=== PATIENT | female | born 1985 | race Asian ===

== ENCOUNTER 2020-10-04 02:52 | Emergency (ER) | payer OTHER ==
[~2020-10-04] VITALS: Ht 149.9 cm; Wt 53.6 kg
[2020-10-04] MEDS ORDERED: AMOX TR/POT CLAV 875 MG/125 MG TABLET PO ONE (03:30)
[2020-10-04] MEDS ORDERED: ACETAMINOPHEN 500 MG TABLET PO ONE (03:30)
[2020-10-04] MEDS ORDERED: KETOROLAC TROMETHAMINE 30 MG/ML VIAL IM ONE (03:30)
[2020-10-04 03:48] VITALS: BP 115/68
== END 2020-10-04 03:52 | disposition home or self-care (01) ==
LOC: EMS 02:59
DX: K04.7 Periapical abscess without sinus (principal)
CPT/HCPCS: 96372; 99283; J1885

== ENCOUNTER 2021-08-15 07:32 | Emergency (ER) | payer OTHER ==
[~2021-08-15] VITALS: Ht 149.9 cm; Wt 50.0 kg
[2021-08-15] MEDS ORDERED: IBUP-2070 PO (08:43)
[2021-08-15] MEDS ORDERED: CYCL10TA17 PO (08:44)
[2021-08-15 09:15] VITALS: BP 121/77
== END 2021-08-15 10:23 | disposition home or self-care (01) ==
LOC: EMS 07:32
DX: S39.012A Strain of muscle, fascia and tendon of lower back, initial encounter (principal); M53.3 Sacrococcygeal disorders, not elsewhere classified; X50.0XXA Overexertion from strenuous movement or load, initial encounter; Y93.89 Activity, other specified; Y92.89 Other specified places as the place of occurrence of the external cause; Y99.8 Other external cause status
CPT/HCPCS: 84703; 99283

== ENCOUNTER 2023-03-01 02:10 | Emergency (ER) | payer OTHER ==
[~2023-03-01] VITALS: Ht 149.9 cm; Wt 50.0 kg
[~2023-03-01 02:10] MED LIST: CYCL-448 PO; IBUP-1492 PO
[2023-03-01 02:23] VITALS: TEMP 98.4
[2023-03-01] MEDS ORDERED: KETOROLAC TROMETHAMINE 30 MG/ML VIAL IVP ONE (02:45)
[2023-03-01] MEDS ORDERED: ONDANSETRON HCL 4 MG/2 ML VIAL IVP ONE (02:45)
[2023-03-01 03:16] LABS: BASOPHILS % (AUTO) 0.2 % (0.0-2.0); EOSINOPHILS % (AUTO) 1.1 % (1.0-6.0); HEMATOCRIT 36.7 % (36-46); HEMOGLOBIN 11.9 g/dL (12.0-16.0); LYMPHOCYTES # (AUTO) 2.5 K/uL (1.0-4.8); LYMPHOCYTES % (AUTO) 18.4 % (22.0-44.0); MEAN CORPUSCULAR HEMOGLOBIN 28.8 pg (26.0-34.0); MEAN CORPUSCULAR HGB CONC 32.3 G/dL (31.0-37.0); MEAN CORPUSCULAR VOLUME 89 fL (80-100); MONOCYTES # (AUTO) 0.7 K/uL (0.1-1.0); MONOCYTES % (AUTO) 4.9 % (2.0-9.0); NEUTROPHILS # (AUTO) 10.2 K/uL (1.8-7.7); NEUTROPHILS % (AUTO) 75.4 % (40.0-70.0); PLATELET COUNT (AUTO) 299 K/uL (150-450); RED BLOOD CELL COUNT(AUTO) 4.12 MIL/uL (4.00-5.20); RED CELL DISTRIBUTION WIDTH 12.6 % (11.5-14.5); WHITE BLOOD COUNT (AUTO) 13.5 K/uL (4.5-11.0)
[2023-03-01 03:27] LABS: ANION GAP 11 mmol/L (8-16); CARBON DIOXIDE 22 mmol/L (22-29); CHLORIDE 101 mmol/L (98-107); CREATININE 0.69 mg/dL (0.60-1.30); GLOMERULAR FILTR. RATE CALC > 60 mL/min (>60); GLUCOSE,RANDOM 160 mg/dL (70-110); POTASSIUM 3.4 mmol/L (3.5-5.1); SODIUM SERUM 134 mmol/L (136-145); UREA NITROGEN, BLOOD 14 mg/dL (7-18)
[2023-03-01 03:34] LABS: ALANINE AMINOTRANSFERASE 17 U/L (12-78); ALBUMIN 3.3 g/dL (3.4-5.0); ALKALINE PHOSPHATASE 47 U/L (46-116); ASPARTATE AMINOTRANSFERASE 17 U/L (15-37); BILIRUBIN,TOTAL 0.4 mg/dL (0.1-1.0); LIPASE 41 U/L (16-77); TOTAL PROTEIN, SERUM 7.4 g/dL (6.4-8.2)
[2023-03-01 04:15] LABS: APPEARANCE,URINE HAZY (CLEAR); COLOR,URINE DARK BROWN (YELLOW); GLUCOSE, URINE (UA) NEGATIVE (NEGATIVE); KETONES,URINE NEGATIVE (NEGATIVE); LEUKOCYTE ESTERASE ,URINE NEGATIVE (NEGATIVE); NITRATE,URINE POSITIVE (NEGATIVE); OCCULT BLOOD,URINE LARGE (NEGATIVE); PH,URINE 5.5 (5.0-8.0); PROTEIN,URINE 30-70 mg/dL (NEGATIVE); SPECIFIC GRAVITIY, URINE 1.032 (1.003-1.030)
[2023-03-01 04:26] LABS: BILIRUBIN,URINE SMALL (NEGATIVE)
[2023-03-01 04:40] LABS: WBC,URINE 0-2 /HPF (0-5)
[2023-03-01 04:41] LABS: BACTERIA,URINE Few /HPF (None Seen); CALCIUM OXALATE CRYSTALS,UR Few /LPF (None Seen); SQUAMOUS EPITHELIAL CELL,UR Few /LPF (None Seen)
[2023-03-01] MEDS ORDERED: FentaNYL CITRATE PF 100 MCG/2 ML VIAL IVP ONE (05:15)
[2023-03-01] MEDS ORDERED: ACETAMINOPHEN 325 MG TABLET PO ONE (05:45)
[2023-03-01 06:12] VITALS: BP 113/71; PULSE 75; RESP 16
[2023-03-01] MEDS ORDERED: TAMS0.4C34 PO (06:29)
[2023-03-01] MEDS ORDERED: IBUP-1492 PO (06:29)
== END 2023-03-01 06:36 | disposition home or self-care (01) ==
LOC: EMS 02:11
DX: N23 Unspecified renal colic (principal); R31.9 Hematuria, unspecified
CPT/HCPCS: 99285; 74176; 96374; 71045; 96375; 80053; 81001; 83690; 84703; 85025; 36415; 93005; J1885; J2405

== ENCOUNTER 2025-02-05 18:41 | Emergency (ER) | payer OTHER ==
[~2025-02-05] VITALS: Ht 149.9 cm; Wt 52.3 kg
[~2025-02-05 18:41] MED LIST changes: +TAMS0.4C94 PO
[2025-02-05 19:42] LABS: PLATELET COUNT (AUTO) 275 K/uL (150-450); RED BLOOD CELL COUNT(AUTO) 3.82 MIL/uL (4.00-5.20); RED CELL DISTRIBUTION WIDTH 13.0 % (11.5-14.5); WHITE BLOOD COUNT (AUTO) 21.6 K/uL (4.5-11.0)
[2025-02-05 19:50] LABS: CALCIUM, TOTAL 8.5 mg/dL (8.8-10.5); CREATININE 0.69 mg/dL (0.60-1.30); GLOMERULAR FILTR. RATE CALC > 60 mL/min (>60); GLUCOSE,RANDOM 203 mg/dL (70-110); SODIUM SERUM 131 mmol/L (136-145); UREA NITROGEN, BLOOD 10 mg/dL (7-18)
[2025-02-05 19:57] LABS: ASPARTATE AMINOTRANSFERASE 18 U/L (15-37); TOTAL PROTEIN, SERUM 6.6 g/dL (6.4-8.2)
[2025-02-05] MEDS: SODIUM CHLORIDE 0.9% 1,000 ML IV ONE (20:02)
[2025-02-05] MEDS: MORPHINE SULFATE 2 MG/ML SYRINGE IVP ONE (20:02)
[2025-02-05] MEDS: ONDANSETRON HCL 4 MG/2 ML VIAL IVP ONE (20:02)
[2025-02-05 20:14] LABS: LACTIC ACID 5.4 mmol/L (0.4-2.0)
[2025-02-05] MEDS: SODIUM CHLORIDE 0.9% 600 ML IV ONE (20:28)
[2025-02-05] MEDS: CefTRIAXone 1 GM/DEXTROSE 50 ML IV ONE (22:13)
[2025-02-05] MEDS ORDERED: SODIUM CHLORIDE 0.9% 250 ML IV ONE (22:57)
[2025-02-05] MEDS ORDERED: FentaNYL CITRATE PF 100 MCG/2 ML VIAL ONE (23:00)
[2025-02-05 23:21] VITALS: BP 90/46; PULSE 65; RESP 16; TEMP 97.9
[2025-02-05 23:46] VITALS: BP 88/57; PULSE 72; RESP 15; TEMP 98.2
[2025-02-06 00:16] VITALS: BP 95/32; PULSE 80; RESP 17; TEMP 98
[2025-02-06] MEDS: FentaNYL CITRATE PF 100 MCG/2 ML VIAL IVP ONE (00:24)
[2025-02-06 00:32] VITALS: BP 95/32; PULSE 80; RESP 17; TEMP 98; O2SAT 98
== END 2025-02-05 23:07 | disposition short-term general hospital (02) ==
LOC: EMS 18:41
DX: O00.90 Unspecified ectopic pregnancy without intrauterine pregnancy (principal); Z3A.01 Less than 8 weeks gestation of pregnancy; Z79.899 Other long term (current) drug therapy
CPT/HCPCS: 99291; 36430; 96365; 76801; 96375; 80048; 80076; 82150; 83605; 83690; 84702; 85025; 87040; 86850; 86900; 86901; 86923; 36415; P9016; J0696; J3010; J2270; J2405; J7030; J7050